=== PATIENT | female | born 1960 | race Caucasian/White ===

== ENCOUNTER 2022-11-06 11:23 | Outpatient (CLI) | payer OTHER, SELFPAY | END 2022-11-06 11:24 | disposition home or self-care (01) | PROVIDERS: PCP Family Medicine; Visit Provider Family Medicine | DX: Z00.00 Encounter for general adult medical examination without abnormal findings (principal); I10 Essential (primary) hypertension; L65.9 Nonscarring hair loss, unspecified | CPT/HCPCS: 80053; 83520; 84439; 84443 ==

== ENCOUNTER 2023-04-03 09:02 | Outpatient (CLI) | payer OTHER, SELFPAY | END 2023-04-03 09:03 | disposition home or self-care (01) | PROVIDERS: PCP Family Medicine; Visit Provider Family Medicine | DX: I10 Essential (primary) hypertension (principal); N89.8 Other specified noninflammatory disorders of vagina; F32.A Depression, unspecified | CPT/HCPCS: 80048; 82043; 82570 ==

== ENCOUNTER 2023-04-10 13:38 | Outpatient (CLI) | payer OTHER, SELFPAY | END 2023-04-10 13:39 | disposition home or self-care (01) | PROVIDERS: PCP Family Medicine; Referring Provider Family Medicine; Visit Provider Family Medicine | DX: R39.9 Unspecified symptoms and signs involving the genitourinary system (principal); N39.0 Urinary tract infection, site not specified; N30.90 Cystitis, unspecified without hematuria; R31.9 Hematuria, unspecified; Z13.89 Encounter for screening for other disorder | CPT/HCPCS: 87086; 87186 ==

== ENCOUNTER 2023-04-17 11:06 | Outpatient (CLI) | payer OTHER, SELFPAY | END 2023-04-17 11:07 | disposition home or self-care (01) | LOC: FRMREF 11:06 | PROVIDERS: PCP Family Medicine; Visit Provider Family Medicine | DX: I10 Essential (primary) hypertension (principal) | CPT/HCPCS: 80048 ==

== ENCOUNTER 2023-05-21 10:35 | Outpatient (CLI) | payer OTHER, SELFPAY | END 2023-05-21 10:36 | disposition home or self-care (01) | PROVIDERS: PCP Family Medicine; Visit Provider Family Medicine | DX: I10 Essential (primary) hypertension (principal); Z13.220 Encounter for screening for lipoid disorders; Z13.21 Encounter for screening for nutritional disorder; Z11.59 Encounter for screening for other viral diseases | CPT/HCPCS: 80053; 80061; 82043; 82306; 82570; 86803 ==

== ENCOUNTER 2023-10-02 11:41 | Outpatient (CLI) | payer OTHER, SELFPAY | END 2023-10-02 11:42 | disposition home or self-care (01) | LOC: FRMREF 11:44 | PROVIDERS: PCP Family Medicine; Visit Provider Family Medicine | DX: I10 Essential (primary) hypertension (principal) | CPT/HCPCS: 80048 ==